=== PATIENT | female | born 1975 | race Caucasian/White ===

== ENCOUNTER 2016-10-21 13:00 | Emergency (ER) | payer OTHER ==
[~2016-10-21] VITALS: Ht 167.6 cm; Wt 127.3 kg
[~2016-10-21 13:00] MED LIST: ALPR2TAB2 PO; BACL10TA PO; DULO30CA PO; LITH600C PO; RISP4TAB2 PO; TRAZ150T72 PO
[2016-10-21 13:05] VITALS: BP 129/96; PULSE 101; RESP 17; O2SAT 100; O2SAT 95
--- NOTE | 2016-10-21 13:22 | ED.REPORT ---
HPI-General Illness Date of Service Oct 21, 2016 ED Provider: Nam Carreon MD 41 year old female with a history of bulging discs c6-c7 presents to the ER complaining of acute on chronic neck pain onset this morning upon awakening. She reports right neck pain that "feels like she slept on it wrong". Pain is exacerbated by certain motions and positions. Associated symptom of dizziness. Patient denies any recent trauma. Nursing Notes Stated Complaint: NECK PAIN Chief Complaint: Extremity Trauma Nursing Notes Reviewed: Yes Allergies: Coded Allergies: venlafaxine HCl (Verified Allergy, Severe, Joint Pain, 04/20/15) Scheduled Baclofen (Baclofen) 10 Mg Tablet 10 MG PO DAILY Duloxetine (Cymbalta) 30 Mg Capsule.dr 30 MG PO DAILY [place] Carbonate ([place] Carbonate) 600 Mg Capsule 600 MG PO BID Prednisone (PredniSONE) 20 Mg Tablet 40 MG PO DAILY Trazodone (Trazodone) 150 Mg Tablet 150 MG PO HS Scheduled PRN Alprazolam (Xanax) 2 Mg Tablet 10 MG PO BID PRN PRN For Anxiety Cyclobenzaprine (Cyclobenzaprine) 5 Mg Tablet 5 MG PO HS PRN PRN Spasm Ibuprofen (Ibuprofen) 800 Mg Tablet 800 MG PO TID PRN PRN For Pain Risperidone (Risperidone) 4 Mg Tablet 5 MG PO HS PRN PRN For Sleep General Time Seen by MD: 13:18 Chief Complaint Other (Neck Pain) Sudden in Onset?: No Onset Occurred: 5 - 8 hours ago Symptom Duration: Since onset Location: : Neck Quality: Painful Severity: Current: Moderate Severity: Maximum: Moderate Pertinent Negative: Pt denies other symptoms Similar Sx Previous: Yes Past Medical History Past Medical History Notes: PCP: Dr. Britney Castillo Past Medical History Herniated disc C spine, surgery cancelled due to asthma exacerbation during anesthesia administration Ulcer Cholelithiasis Bipolar disorder Reports: Asthma, Mental illness Reports: Depression Past Surgical History Uterine ablation Tubal ligation Smoking History Current Some Day Smoker Social History Alcohol Use: Denies alcohol use Drug Use: THC Ambulatory Status Independent Review of Systems Full Review of Systems Musculoskeletal: Reports: Neck pain, Denies: Back pain, Extremity pain, Joint pain, Lumbar pain Neurologic: Denies: Headache Complete sys rev & neg: except as marked. Physical Exam Vital Signs Vital Signs Date Time Temp Pulse Resp B/P Pulse Ox O2 Delivery O2 Flow Rate FiO2 10/21/16 14:37 18 141/101 99 10/21/16 13:05 36.7 101 17 129/96 95 Room Air Initial VS: Reviewed General/Constitutional: Well-developed, Well-nourished Head / Eyes: Atraumatic, Normocephalic Extremities: Vascular intact, Neuro intact, No swelling, No tenderness Skin: Warm, Dry, No cyanosis Neurologic: Alert, Oriented, Nonfocal Psychiatric: Mood/affect normal, Behavior normal, Normal thought content Neck: No midline vertebral tend, No masses, No tracheal deviation Neck / Muscle Tenderness: Positive: Paraspinal R... (Moderate) Respiratory / Chest: Breath sounds NL, No respiratory distress, No rales, No rhonchi, No wheezing Cardiovascular: Heart rate NL, Regular rhythm, Heart sounds NL, Cap refill not delayed, Peripheral circulation NL Re-Eval/Medical Decision Med Decision/Clinical Course 41-year-old female with chronic neck pain and disability is presenting with a kinked neck since this morning. Her neurological exam is normal. She has limited range of motion of her neck due to pain. She has no midline tenderness. We will treat with muscle relaxers and NSAIDs. Patient is agreeable with this plan. Return precautions given. Time of Eval: 13:48 Re-Evaluation/Progress Note: Discussed physical examination findings and plan to discharge. Patient is amenable to the plan. Return precautions given. All other questions addressed. Counseled Regarding: Diagnosis, Need for follow-up, When/why to return to ED Discharge & Departure Primary Impression: Neck pain Disposition: Home Discharge Condition All VS Reviewed: Yes Condition: Improved Patient Instructions: Cervical Spine Strain (DC) Additional Instructions: Take Prednisone and ibuprofen as prescribed. Take Flexeril as prescribed. This is a muscle relaxer, do not drive or consume alcohol while taking it. Follow-up with your primary care doctor in 1-2 days. Return to the ER if you develop new or worsening pain, numbness/tingling/ weakness, headache, nausea, vomiting, or any other concerning symptoms. Referrals: Britney Castillo (PCP) Scribe Attestation Portions of this note were transcribed by Mario Ramirez. I, Dr. Carreon, personally performed the history, physical exam and medical decision-making; I reviewed and confirmed the accuracy of the information in the transcribed note. Signed by: Willian Castro, 10/21/2016 at 13:51 copies to: Britney Castillo Ben M MD Oct 21, 2016 13:22 MARIO RAMIREZ Oct 21, 2016 13:38
[2016-10-21] MEDS ORDERED: IBUP800T28 PO (13:51)
[2016-10-21] MEDS ORDERED: PRE20 PO (13:51)
[2016-10-21] MEDS ORDERED: CYCL5TAB PO (13:51)
[2016-10-21 14:37] VITALS: BP 141/101; RESP 18; O2SAT 99
== END 2016-10-21 13:52 | disposition home or self-care (01) ==
LOC: SED 13:00
DX: M54.2 Cervicalgia (principal); J45.909 Unspecified asthma, uncomplicated; F17.200 Nicotine dependence, unspecified, uncomplicated; Z88.8 Allergy status to other drugs, medicaments and biological substances
CPT/HCPCS: 96372; 99283; J1885